=== PATIENT | male | born 1955 | race Two or more races ===

== ENCOUNTER 2021-09-02 14:45 | Outpatient (CLI) | payer OTHER | END 2021-09-02 14:48 | disposition home or self-care (01) | LOC: RAD 14:45 | PROVIDERS: ATTEND General Practice | DX: Z22.7 Latent tuberculosis (principal) ==

== ENCOUNTER 2023-09-07 07:29 | Outpatient (CLI) | payer OTHER ==
[~2023-09-07 07:29] MED LIST: GEMFIBROZIL600 MG PO; PRAVASTATIN SOD20 MG PO; ZESTRIL20 MG PO
== END 2023-09-07 07:33 | disposition home or self-care (01) ==
LOC: SONOGRAMA 07:29
DX: R79.9 Abnormal finding of blood chemistry, unspecified (principal)